=== PATIENT | male | born 1985 ===

== ENCOUNTER 2017-03-15 23:16 | Emergency (ER) | payer BC, OTHER ==
[2017-03-15 23:24] VITALS: BP 114/52; PULSE 57; RESP 17; TEMP 98.4; O2SAT 99
--- NOTE | 2017-03-16 00:29 | ED PDOC ---
HPI: General Adult Time Seen by Provider: 03/15/17 23:42 Chief Complaint (Nursing): Abnormal Skin Integrity History Per: Patient Additional Complaint(s): Pt. states for the 2 days ago he had a pimple like mass on the L lower leg which has increased in redness prompting ED visit. Denies fever, trauma. Past Medical History Reviewed: Historical Data, Nursing Documentation, Vital Signs Vital Signs: Last Vital Signs Temp 98.4 F 03/15/17 23:20 Pulse 57 L 03/15/17 23:20 Resp 17 03/15/17 23:20 BP 114/52 L 03/15/17 23:20 Pulse Ox 99 03/15/17 23:20 - Family History Family History: States: Diabetes - Home Medications Home Medications: Ambulatory Orders Medication Instructions Recorded Ibuprofen [Motrin Tab] 800 mg PO Q8 #20 tab 11/10/15 Oxycodone HCl/Acetaminophen 1 tab PO Q4 #10 tab 11/10/15 [Percocet 325 mg-5 mg] Erythromycin 0.5% [Erythromycin] 1 applic LEFTEYE Q6 #1 tube 12/13/15 Cephalexin [cephalexin] 500 mg PO QID 7 Days 10/29/16 Ciclopirox 0.77% [Loprox 0.77%] 30 gm EXT BID #1 tube 10/29/16 Cephalexin [cephalexin] 500 mg PO Q6 #28 cap 03/16/17 - Allergies Allergies/Adverse Reactions: Allergies Allergy/AdvReac Type Severity Reaction Status Date / Time No Known Allergies Allergy Verified 10/29/16 17:42 Review of Systems ROS Statement: Except As Marked, All Systems Reviewed And Found Negative Physical Exam - Physical Exam Appears: Positive for: Well, Non-toxic, No Acute Distress Skin: Positive for: Normal Color, Warm. Negative for: Rash Extremity: Positive for: Other (L lateral distal leg with erythematous papule with surrounding erythema without fluctuance, discharge, induration or central clearing) - ECG O2 Sat by Pulse Oximetry: 99 Disposition - Clinical Impression Clinical Impression: Cellulitis - Disposition Referrals: formerly [facility] [Outside] Disposition: Routine/Home Disposition Time: 00:30 Condition: STABLE Prescriptions: Cephalexin [cephalexin] 500 mg PO Q6 #28 cap Instructions: Cellulitis (ED) Print Language: PERSIAN
== END 2017-03-16 01:03 | disposition home or self-care (01) ==
LOC: H.ER 23:16
DX: L03.90 Cellulitis, unspecified (principal)

== ENCOUNTER 2018-07-22 16:20 | Emergency (ER) | payer OTHER ==
[2018-07-22 16:30] VITALS: PULSE 79; O2SAT 99
[2018-07-22] MEDS ORDERED: Lidocaine 1% w Epi 1:100,000 Inj ONE (17:36)
--- NOTE | 2018-07-22 17:57 | ED PDOC ---
Lower Extremity Pain/Injury History Per: Patient Additional Complaint(s): 33 y/o male with PMH of recurrent cellulitis presents to the ED c/o left lateral heel pain and swelling x 5 days. Pt had a blister in that area last Saturday that popped on Saturday that has now developed an abscess with surrounding erythema. Pt saw PMD on Saturday, who prescribed ketoconazole cream, which provides no relief. Pt has been taking 800mg ibuprofen every 6 hours without relief, last dose 8am. He has struggled with intermittent cellulitis on alternating right and left foot over the last year. Pt has been seen for this complaint before at [facility] ED. Denies fever, chills, lightheadedness, gait difficulty, wound drainage, back pain, neck pain, headache, dizziness, syncope. <Valeria Ricketts - Last Filed: 07/22/18 21:30> <Leonila Hilario - Last Filed: 07/26/18 12:47> Time Seen by Provider: 07/22/18 17:26 Chief Complaint (Nursing): Lower Extremity Problem/Injury Past Medical History Reviewed: Historical Data, Nursing Documentation, Vital Signs Vital Signs: Last Vital Signs Temp 98.3 F 07/22/18 16:26 Pulse 79 07/22/18 16:26 Resp 20 07/22/18 16:26 BP 146/89 07/22/18 16:26 Pulse Ox 99 07/22/18 16:26 - Family History Family History: States: Diabetes <Valeria Ricketts - Last Filed: 07/22/18 21:30> Vital Signs: Last Vital Signs Temp 98.9 F 07/22/18 19:55 Pulse 79 07/22/18 19:55 Resp 16 07/22/18 19:55 BP 127/78 07/22/18 19:55 Pulse Ox 99 07/22/18 21:39 <Leonila Hilario - Last Filed: 07/26/18 12:47> - Home Medications Home Medications: Ambulatory Orders Medication Instructions Recorded Cephalexin [Keflex] 500 mg PO Q8H #21 capsule 07/22/18 Sulfamethoxazole/Trimethoprim 2 tab PO BID #28 tab 07/25/18 [Bactrim DS 800 mg-160 mg] - Allergies Allergies/Adverse Reactions: Allergies Allergy/AdvReac Type Severity Reaction Status Date / Time No Known Allergies Allergy Verified 07/22/18 16:25 Wells Criteria for PE - Wells Criteria for Pulmonary Embolism Clinical Signs and Symptoms of DVT: No P.E is #1 Diagnosis, or Equally Likely: No Heart Rate >100: No Immobilization at least 3 days;Surgery previous 4 weeks: No Previous, objectively diagnosed PE or DVT: No Hemoptysis: No Malignancy w/treatment within 6 months, or palliative: No Total Score: 0 <Valeria Ricketts - Last Filed: 07/22/18 21:30> Review of Systems ROS Statement: Except As Marked, All Systems Reviewed And Found Negative Constitutional: Negative for: Fever, Chills Eyes: Negative for: Vision Change ENT: Negative for: Ear Pain, Nose Pain, Mouth Pain, Throat Pain Cardiovascular: Negative for: Chest Pain, Palpitations Respiratory: Negative for: Cough, Shortness of Breath Gastrointestinal: Negative for: Nausea, Vomiting, Abdominal Pain Genitourinary Male: Negative for: Dysuria, Frequency, Hematuria, Penile Discharge, Scrotal Pain, Rash, Penile Pain Musculoskeletal: Positive for: Foot Pain (left). Negative for: Neck Pain, Shoulder Pain, Arm Pain, Back Pain, Hand Pain Skin: Positive for: Other (abscess with surrounding cellulitis left heel). Negative for: Rash Neurological: Negative for: Weakness, Numbness, Headache <Valeria Ricketts - Last Filed: 07/22/18 21:30> Physical Exam - Reviewed Nursing Documentation Reviewed: Yes - Physical Exam Appears: Positive for: Well, Non-toxic, No Acute Distress Head Exam: Positive for: ATRAUMATIC, NORMAL INSPECTION, NORMOCEPHALIC Skin: Positive for: Warm (increased warmth left heel), Dry. Negative for: Normal Color (redness with abscess left heel) Eye Exam: Positive for: EOMI, Normal appearance, PERRL ENT: Positive for: Normal ENT Inspection Neck: Positive for: Normal, Painless ROM Cardiovascular/Chest: Positive for: Regular Rate, Rhythm Respiratory: Positive for: CNT, Normal Breath Sounds Pulses-Dorsalis Pedis (L): 2+ Pulses-Dorsalis Pedis (R): 2+ Back: Positive for: Normal Inspection. Negative for: Vertebral Tenderness Extremity: Positive for: Normal ROM, Capillary Refill, Swelling (left ankle, left heel), Other (abscess with surrounding erythema left heel). Negative for: Deformity Neurologic/Psych: Positive for: Alert, Oriented <Valeria Ricketts - Last Filed: 07/22/18 21:30> - Laboratory Results Result Diagrams: 07/22/18 18:43 07/22/18 18:43 - ECG O2 Sat by Pulse Oximetry: 99 <Valeria Ricketts - Last Filed: 07/22/18 21:30> - Laboratory Results Result Diagrams: 07/22/18 18:43 07/22/18 18:43 <Leonila Hilario - Last Filed: 07/26/18 12:47> Medical Decision Making Medical Decision Makin33 y/o male with PMH of recurrent cellulitis presents to the ED c/o left lateral heel pain and swelling x 5 days. Pt had a blister in that area last Saturday that popped on Saturday that has now developed an abscess with surrounding erythema. Pt saw PMD on Saturday, who prescribed ketoconazole cream, which provides no relief. Pt has been taking 800mg ibuprofen every 6 hours without relief, last dose 8am. Denies fever, chills, lightheadedness, gait difficulty, wound drainage, back pain, neck pain, headache, dizziness, syncope. Exam reveals 4cm by 4cm area of erythema with central 1.5cmx1.5cm abscess on lateral left heel. Swelling and tenderness over abscess and lateral ankle. FROM. Neurovascularly intact. Initial plan: --left foot xr --toradol 30mg IM --call podiatry --I&D abscess Spoke with podiatry who wants basic labs (CBC, CMP) before assessing pt CBC: wnl CMP: wnl Xray: FINDINGS: BONES: No acute displaced fracture. JOINTS: No dislocation. SOFT TISSUES: Unremarkable. No evidence of radiopaque foreign body. OTHER FINDINGS: None. IMPRESSION: No acute displaced fracture, dislocation, or significant joint effusion identified. If symptoms persist, or if there is continued clinical concern, x-ray follow-up in 7-[address] be considered[address] Dr[address] Porras I&D'd the abscess using appropriate procedure and informed consent. Pt tolerated well. Advised Keflex 500mg tid x 7 days and followup in podiatry clinic in 2 days. Impression: Abscess, left foot Plan: Take keflex every 8 hours for one week Continue ibuprofen for pain Followup with podiatry clinic as directed Return to ED if symptoms persist or worsen Plan discussed with pt who agrees and understands. Pt comfortable with discharge home. <Valeria Ricketts - Last Filed: 07/22/18 21:30> Disposition - Disposition Disposition: Routine/Home Disposition Time: 19:00 <Valeria Ricketts - Last Filed: 07/22/18 21:30> <Leonila Hilario - Last Filed: 07/26/18 12:47> - Clinical Impression Clinical Impression: Abscess - Disposition Referrals: Podiatry Clinic [Outside] Condition: IMPROVED Additional Instructions: Take keflex every 8 hours for one week Continue ibuprofen for pain Followup with podiatry clinic as directed Return to ED if symptoms persist or worsen Prescriptions: Cephalexin [Keflex] 500 mg PO Q8H #21 capsule Sulfamethoxazole/Trimethoprim [Bactrim DS 800 mg-160 mg] 2 tab PO BID #28 tab Forms: [employer] (Macedonian), [facility] ED School/Work Excuse Addendum Addendum: 07/26/18 12:47 Reviewed chart. Agree with PA assessment and plan. <Leonila Hilario - Last Filed: 07/26/18 12:47>
--- NOTE | 2018-07-22 18:14 | RAD ---
PROCEDURE: Left Foot Radiographs. HISTORY: r/o osteomyelitis COMPARISON: None available. FINDINGS: BONES: No acute displaced fracture. JOINTS: No dislocation. SOFT TISSUES: Unremarkable. No evidence of radiopaque foreign body. OTHER FINDINGS: None. IMPRESSION: No acute displaced fracture, dislocation, or significant joint effusion identified. If symptoms persist, or if there is continued clinical concern, x-ray follow-up in 7-10 days should be considered.
[2018-07-22 18:51] LABS: BASO % 0.4 % (0.0-2.0); EOS # 0.2 K/uL (0.0-0.7); EOS % 2.9 % (0.0-4.0); HEMOGLOBIN 13.8 g/dL (12.0-18.0); LYMPH # 2.2 K/uL (1.0-4.3); LYMPH % 29.2 % (20.0-40.0); MEAN CELL VOLUME 84.7 fl (80.0-94.0); MEAN CORPUSCULAR HGB CONC 34.3 g/dL (33.0-37.0); MEAN PLATELET VOLUME 7.8 fl (7.2-11.7); MONO # 0.8 K/uL (0.0-0.8); MONO % 10.9 % (0.0-10.0); NEUT # 4.2 K/uL (1.8-7.0); NEUT % 56.6 % (50.0-75.0); NRBC % 0.2 % (0.0-0.0); RBC 4.76 Mil/uL (4.40-5.90); RED CELL DISTRIBUTION WIDTH 13.4 % (11.5-14.5); WHITE BLOOD COUNT 7.5 K/uL (4.8-10.8)
[2018-07-22] MEDS ORDERED: Povidone Iodine Oint 10% Foilpak UD ONE (19:06)
[2018-07-22] MEDS ORDERED: Lidocaine PF 2% (5 ml) Inj (For Cardiac Arrhy) ONE (19:06)
[2018-07-22 19:07] LABS: ALB/GLOB RATIO 1.2 (1.0-2.1); ALBUMIN 4.2 g/dL (3.5-5.0); ALT/SGPT 25 U/L (21-72); AST/SGOT 26 U/L (17-59); BLOOD UREA NITROGEN 10 mg/dl (9-20); CALCIUM 9.4 mg/dL (8.4-10.2); GFR NON-AFRICAN AMERICAN > 60
[2018-07-22] MEDS ORDERED: Lidocaine/Epi 1% 1:100000 20 ML IJ STA (19:50)
[2018-07-22 19:56] VITALS: BP 127/78; RESP 16; TEMP 98.9
--- NOTE | 2018-07-22 20:01 | CP.PCM.CON ---
History of Present Illness - History of Present Illness History of Present Illness: Podiatry consult note for attending Dr. Khan. 33 Y/O M patient with no PMH seen and evaluated in the ED for swelling and pain in his left heel. Patient states that the swelling started to appear 4 days ago. He states that it started as blister then it became painful. Patient states that the pain is 8/10 when he steps down on it. He states that he developped swelling with the pain in his left heel.Patient states that he had 3 I&Ds in both feet last one was a year ago. He states that he has bad fungal infection inbetween his toes. Patient denies any other pedal complaint at this time. he denies any recent F/N/V/C or SOB. PMH: None PSH: 3 I&Ds of abcesses in his feet. Allergies: NKDA Social Hx: Deenies smoking, EtOH use or illicit drug use. Review of Systems - Review of Systems Review of Systems: As per HPI Past Patient History - Past Social History Smoking Status: Current Some Days Smoker - INTEGUMENTARY Hx Cellulitis: Yes - PSYCHIATRIC Hx Substance Use: No - SURGICAL HISTORY Hx Surgeries: No - ANESTHESIA Hx Anesthesia: No Meds Home Medications: Home Medication List Medication Instructions Recorded Confirmed Type Cephalexin [Keflex] 500 mg PO Q8H #21 capsule 07/22/18 Rx Allergies/Adverse Reactions: Allergies Allergy/AdvReac Type Severity Reaction Status Date / Time No Known Allergies Allergy Verified 07/22/18 16:25 Physical Exam - Constitutional Appears: Well, Non-toxic, No Acute Distress - Head Exam Head Exam: ATRAUMATIC, NORMOCEPHALIC - Extremities Exam Additional comments: B/L LE focused exam: Vasc: DP/PT 2/4 b/l. Cap refill < 3 sec in all digits. Temp gradient warm to co ol b/l. No edema. Minimal erythema seen around the swelling. Neuro: Gross and protective sensations are intact. Derm: No open lesions. Swelling [id number] noted at the plantar lateral aspect of the left ankle surrounded by erythema with positive fluctuance and cystic consistency. Interdigital mecerations noted in all the spaces on the right side and 2-4 spaces on the left side. MSK: Pain on palpating the left heel swelling. Muscle power intact 5/5 in all groups b/l. - Neurological Exam Neurological exam: Alert, Oriented x3 - Psychiatric Exam Psychiatric exam: Normal Affect, Normal Mood Results - Vital Signs Recent Vital Signs: Last Vital Signs Temp 98.9 F 07/22/18 19:55 Pulse 79 07/22/18 19:55 Resp 16 07/22/18 19:55 BP 127/78 07/22/18 19:55 Pulse Ox 99 07/22/18 19:55 - Labs Result Diagrams: 07/22/18 18:43 07/22/18 18:43 Labs: Laboratory Results - last 24 hr 07/22/18 07/22/18 18:43 18:43 WBC 7.5 RBC 4.76 Hgb 13.8 Hct 40.3 MCV 84.7 MCH 29.0 MCHC 34.3 RDW 13.4 Plt Count 220 MPV 7.8 Neut % (Auto) 56.6 Lymph % (Auto) 29.2 [place] % (Auto) 10.9 H Eos % (Auto) 2.9 Baso % (Auto) 0.4 Neut # (Auto) 4.2 Lymph # (Auto) 2.2 [place] # (Auto) 0.8 Eos # (Auto) 0.2 Baso # (Auto) 0.0 Sodium 140 Potassium 4.0 Chloride 101 Carbon Dioxide 30 Anion Gap 13 BUN 10 Creatinine 0.7 L Est GFR ( Amer) > 60 Est GFR (Non-Af Amer) > 60 Random Glucose 82 Calcium 9.4 Total Bilirubin 0.3 AST 26 ALT 25 Alkaline Phosphatase 84 Total Protein 7.8 Albumin 4.2 Globulin 3.6 Albumin/Globulin Ratio 1.2 Assessment & Plan - Assessment and Plan (Free Text) Assessment: 33 y/o M patient seen and evaluated in the ED for left heel abcess Plan: Patient seen and evaluated in ED. Plan discussed with attending Dr. Khan. Chart labs and vitals reviewed; Afebrile, WBCs 7.5 Discussed with the patient the need to do an I&D to drain the abscess. Benifits, risks and possible complications of the procedure explained to the patient. Patient expressed verbal understanding. Patient agrees to do the procedure. Patient signed informed consent. 5 cc of 2% lidocaine injected in infiltrative fashion at the nohemy-abscess area. Under sterile condition, After checking the local anesthesia status using sterile 15 blade, sterile pickup and sterile pick-up and I&D was performed. Abscess irrigated with sterile saline after draining all the pus. Dressing then dne using bacitracin, DSD and kerlix Patient tolerated the procedure well with no complications. RX Keflex 500 mg tablets PO TID. Patient instructed to change the dressing daily with betadine, Bacitracin and DSD. Patient educated proper foot hygein. Patient instructed to get OTC clotrimazole cream for the fungar infectioon. Patient instructed to use OTC betadine or Gentian jazmyn inbetween the toes. Patient expressed verbal understanding. Patient to F/U in the podiatry clinic - Date & Time Date: 07/22/18 Time: 20:04
== END 2018-07-22 19:56 | disposition home or self-care (01) ==
LOC: H.ER 16:20
DX: L02.612 Cutaneous abscess of left foot (principal); B95.62 Methicillin resistant Staphylococcus aureus infection as the cause of diseases classified elsewhere
CPT/HCPCS: 10060; 73630; 80053; 85025; 87070; 87181; 96372; 99284; J1885